=== PATIENT | female | born 1995 | race American Indian/Alaskan Native ===

== ENCOUNTER 2016-09-15 23:28 | Emergency (ER) | payer SELFPAY ==
[2016-09-15 23:38] VITALS: BMI 20.7
[2016-09-15 23:48] VITALS: TEMP 98; O2SAT 100
--- NOTE | 2016-09-16 00:11 | ED PDOC ---
Arrival/HPI - General Chief Complaint: Chest Pain Time Seen by Provider: 09/15/16 23:45 Historian: Patient, Parent - History of Present Illness Narrative History of Present Illness (Text): 09/16/16 00:10 Karla Edmondson is a 21 year old female who presents to the Emergency department complaining of chest pain. Patient states she has been experiencing chest tightness with associated shortness of breath, left arm tingling sensation and nausea. Mother notes patient had similar symptoms yesterday and was taken to an ER in [place] s/p a syncopal episode. Mother states patient had a full workup which was negative, told her symptoms were due to anxiety, and discharged home. Patient denies any fever, chills, nausea, vomiting, diarrhea, urinary symptoms, back pain, neck pain, headache, dizziness, or any other complaints. Time/Duration: Other (yesterday) Symptom Onset: Gradual Symptom Course: Unchanged Activities at Onset: Rest, Light Context: Home Past Medical History - Provider Review Nursing Documentation Reviewed: Yes - Neurological Hx Dizziness: Yes - Psychiatric Hx Substance Use: No Family/Social History - Physician Review Nursing Documentation Reviewed: Yes Family/Social History: No Known Family HX Smoking Status: Never Smoked Hx Alcohol Use: No Hx Substance Use: No Allergies/Home Meds Allergies/Adverse Reactions: Allergies No Known Allergies Allergy (Verified 09/15/16 23:38) Review of Systems - Physician Review All systems were reviewed & negative as marked: Yes - Review of Systems Constitutional: Normal. absent: Fevers Eyes: Normal ENT: Normal Respiratory: SOB Cardiovascular: Chest Pain Gastrointestinal: Nausea. absent: Abdominal Pain, Diarrhea, Vomiting Genitourinary Female: Normal. absent: Dysuria, Frequency, Hematuria, Urine Output Changes Musculoskeletal: Normal. absent: Back Pain, Neck Pain Skin: Normal. absent: Rash Neurological: Normal. absent: Headache, Dizziness Endocrine: Normal Hemo/Lymphatic: Normal Psychiatric: Normal Physical Exam Vital Signs Reviewed: Yes Vital Signs Temp Pulse Resp BP Pulse Ox 09/16/16 03:21 74 15 98/54 L 100 09/16/16 01:49 74 18 101/61 100 09/15/16 23:41 98.0 F 95 H 20 127/75 100 Temperature: Afebrile Blood Pressure: Normal Pulse: Regular Respiratory Rate: Normal Appearance: Positive for: Well-Appearing, Non-Toxic, Comfortable Pain Distress: None Mental Status: Positive for: Alert and Oriented X 3, other (Anxious) - Systems Exam Head: Present: Atraumatic, Normocephalic Pupils: Present: PERRL Extroacular Muscles: Present: EOMI Conjunctiva: Present: Normal Mouth: Present: Moist Mucous Membranes Neck: Present: Normal Range of Motion Respiratory/Chest: Present: Clear to Auscultation, Good Air Exchange. No: Respiratory Distress, Accessory Muscle Use Cardiovascular: Present: Regular Rate and Rhythm, Normal S1, S2. No: Murmurs Abdomen: Present: Normal Bowel Sounds. No: Tenderness, Distention, Peritoneal Signs Back: Present: Normal Inspection Upper Extremity: Present: Normal Inspection. No: Cyanosis, Edema Lower Extremity: Present: Normal Inspection. No: Edema Neurological: Present: GCS=15, CN II-XII Intact, Speech Normal Skin: Present: Warm, Dry, Normal Color. No: Rashes Psychiatric: Present: Alert, Oriented x 3, Normal Insight, Normal Concentration , Anxious Medical Decision Making ED Course and Treatment: 09/16/16 00:10 Impression: 21 year old female complaining of chest tightness, shortness of breath, left arm tingling, and nausea. Plan: -- EKG -- Chest X-ray -- Labs, cardiac enzymes, D-dimer -- Urine drug screen -- Duoneb -- Reassess and disposition Progress Notes: reviewed EKG, NSR at [address]-segment elevations or depressions, no T-wave inversions, normal intervals. 09/16/16 03:55 Reviewed labs, no acute abnormalities. Reviewed radiology, Chest X-ray shows no active disease. 09/16/16 04:35 On re-evaluation, the patient feels better and is in no acute distress. I have discussed the results and plan with the patient, who expresses understanding. Patient in agreement with plan to discharged home. Patient is stable for discharge. Patient was instructed to follow up with physician/clinic in 1-2 days or return if symptoms worsen or new concerning symptoms arise. - Lab Interpretations Lab Results: 09/16/16 00:05 09/16/16 00:05 Lab Results 09/16/16 01:10: Urine Opiates Screen Negative, Urine Methadone Screen Negative, Ur Barbiturates Screen Negative, Ur Phencyclidine Scrn Negative, Ur Amphetamines Screen Negative, U Benzodiazepines Scrn Negative, U Oth Cocaine Metabols Negative, U Cannabinoids Screen Negative 09/16/16 00:05: WBC 6.0, RBC 4.91, Hgb 13.4, Hct 40.0, MCV 81.5, MCH 27.3, MCHC 33.5, RDW 12.9, Plt Count 240, MPV 10.2, D-Dimer, Quantitative 0.19, Sodium 140 , Potassium 4.2, Chloride 101, Carbon Dioxide 25, Anion Gap 18, BUN 12, Creatinine 0.8, Est GFR ( Amer) > 60, Est GFR (Non-Af Amer) > 60, Random Glucose 72, Calcium 9.8, Total Bilirubin 1.2, AST 27, ALT 24, Alkaline Phosphatase 52, Lactate Dehydrogenase 404, Total Creatine Kinase 68, Troponin I < 0.01, Total Protein 8.3, Albumin 4.5, Globulin 3.9, Albumin/Globulin Ratio 1.2 I have reviewed the lab results: Yes - RAD Interpretation Radiology Orders: 09/16/16 00:24 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 I have reviewed the chart and agree that the record accurately reflects my personal performance of the history, physical exam, medical decision making, and the department course for this patient. I have also personally directed, reviewed, and agree with the discharge instructions and disposition. Disposition/Present on Arrival - Present on Arrival Any Indicators Present on Arrival: No History of DVT/PE: No History of Uncontrolled Diabetes: No Urinary Catheter: No History of Decub. Ulcer: No History Surgical Site Infection Following: None - Disposition Have Diagnosis and Disposition been Completed?: Yes Diagnosis: Bronchospasm, Anxiety Disposition: HOME/ ROUTINE Disposition Time: 04:35 Patient Plan: Discharge Condition: GOOD Discharge Instructions (ExitCare): Bronchospasm (ED), Anxiety (ED) Additional Instructions: Use medication as prescribed/follow up with your doctor this week as scheduled Prescriptions: Albuterol HFA [Ventolin HFA 90 mcg/actuation (8 g)] 2 puff IH [id number] PRN #1 puff PRN Reason: Wheezing
[2016-09-16] MEDS ORDERED: Albuterol-Ipratrop 3 mg / 0.5 (3 ml) UD IH STA (00:25)
[2016-09-16 00:54] LABS: ALB/GLOB RATIO 1.2 (1.1-1.8); ALKALINE PHOSPHATASE 52 U/L (38-133); ALT/SGPT 24 U/L (7-56); AST/SGOT 27 U/L (15-39); BILIRUBIN,TOTAL 1.2 mg/dL (0.2-1.3); BLOOD UREA NITROGEN 12 mg/dL (7-21); CALCIUM 9.8 mg/dL (8.4-10.5); CARBON DIOXIDE 25 mmol/L (21-33); CHLORIDE 101 mmol/L (98-107); GFR AFRICAN-AMERICAN > 60; GLUCOSE,RANDOM 72 mg/dL (70-110); POTASSIUM 4.2 mmol/L (3.6-5.0); SODIUM 140 mmol/L (132-148); TOTAL PROTEIN 8.3 g/dL (5.8-8.3)
[2016-09-16 01:05] LABS: TROPONIN I < 0.01 ng/mL
[2016-09-16 01:42] LABS: MEAN CELL VOLUME 81.5 fL (80.0-105.0); MEAN CORPUSCULAR HEMOGLOBIN 27.3 pg (25.0-35.0); MEAN CORPUSCULAR HGB CONC 33.5 g/dl (31.0-37.0); MEAN PLATELET VOLUME 10.2 fl (7.0-11.0); RED CELL DISTRIBUTION WIDTH 12.9 % (11.5-14.5)
[2016-09-16 01:50] VITALS: PULSE 74
[2016-09-16 03:24] VITALS: BP 98/54; RESP 15
--- NOTE | 2016-09-16 07:16 | RAD ---
HISTORY: sob COMPARISON: No prior. FINDINGS: LUNGS: No active pulmonary disease. PLEURA: No significant pleural effusion identified, no pneumothorax apparent. CARDIOVASCULAR: Normal. OSSEOUS STRUCTURES: Mild dextroscoliosis VISUALIZED UPPER ABDOMEN: Normal. OTHER FINDINGS: None. IMPRESSION: No active disease.
--- NOTE | 2016-09-16 16:49 | CARD ---
APPROVED REPORT EKG Measurement Heart [id number] ID [id number] <Conclusion> Normal sinus rhythm Normal ECG
== END 2016-09-16 04:46 | disposition home or self-care (01) ==
LOC: ED 23:28
DX: F41.9 Anxiety disorder, unspecified (principal); J98.01 Acute bronchospasm
CPT/HCPCS: 71010; 80053; 82550; 83615; 84484; 85027; 85378; 93005; 99284; G0480

== ENCOUNTER 2017-04-13 08:38 | Emergency (ER) | payer OTHER ==
[2017-04-13 08:45] VITALS: BMI 21.0
[2017-04-13] MEDS ORDERED: Sodium Chloride 0.9% 1,000 ML IV STA (09:24)
[2017-04-13 09:25] VITALS: TEMP 97.8
--- NOTE | 2017-04-13 09:29 | ED PDOC ---
Arrival/HPI - General Chief Complaint: Back Pain Time Seen by Provider: 04/13/17 09:16 Historian: Patient - History of Present Illness Narrative History of Present Illness (Text): 04/13/17 09:26 22 yo female , LNMP 10/09/16, 26 wks , (+) care, uncomplicated up to-today, present to ED for evaluation of chill, gradual worsening of bodyaches " mostly my back", sore throat for past 2 days. Otherwise, pt denies high fever, chills, headache, dizziness, neck pain, drooling, dysphagia, dyspnea, cough, CP, SOB, wheezing, abd. pain, V/D, UTI sx, vaginal irritation/bleeding or any other active complaints. At the time of evaluation, appears comfortable, not in any apparent distress. Past Medical History - Provider Review Nursing Documentation Reviewed: Yes - Travel History Have you recently traveled outside [place] w/in the past 3 mons?: No If Yes, travel location?: No - Past History Past History: No Previous - Infectious Disease Hx of Infectious Diseases: None - Tetanus Immunization Tetanus Immunization: Up to Date - Neurological Hx Dizziness: Yes - Psychiatric Hx Substance Use: No Family/Social History - Physician Review Nursing Documentation Reviewed: Yes Family/Social History: No Known Family HX Smoking Status: Never Smoked Hx Alcohol Use: No Hx Substance Use: No Allergies/Home Meds Allergies/Adverse Reactions: Allergies No Known Allergies Allergy (Verified 09/15/16 23:38) Review of Systems - Review of Systems Constitutional: Fatigue. absent: Fevers, Night Sweats Eyes: Normal. absent: Vision Changes ENT: Sore Throat. absent: Tinnitus Respiratory: Normal. absent: SOB, Cough, Sputum Cardiovascular: Normal. absent: Chest Pain Gastrointestinal: Normal. absent: Abdominal Pain, Diarrhea, Vomiting Genitourinary Female: Normal. absent: Dysuria, Frequency, Hematuria, Vaginal Bleeding Musculoskeletal: Normal Skin: Normal Neurological: Normal Endocrine: Normal Hemo/Lymphatic: Normal Psychiatric: Normal Physical Exam Vital Signs Reviewed: Yes Vital Signs Temp Pulse Resp BP Pulse Ox 04/13/17 11:14 17 L 18 118/73 99 04/13/17 09:03 97.8 F 88 17 103/66 98 Temperature: Afebrile Blood Pressure: Normal Pulse: Regular Respiratory Rate: Normal Appearance: Positive for: Well-Appearing, Non-Toxic, Comfortable Pain Distress: Mild Mental Status: Positive for: Alert and Oriented X 3 - Systems Exam Head: Present: Atraumatic, Normocephalic Conjunctiva: Present: Normal Ears: Present: NORMAL TM Mouth: Present: Moist Mucous Membranes. No: Drooling, Normal Lips Pharnyx: Present: ERYTHEMA (mild B/L). No: EXUDATE, TONSILS ENLARGED Nose (Internal): Present: Normal Inspection Neck: Present: Trachea Midline. No: JVD, Lymphadenopathy Respiratory/Chest: Present: Clear to Auscultation, Good Air Exchange. No: Respiratory Distress, Accessory Muscle Use Cardiovascular: Present: Regular Rate and Rhythm, Normal S1, S2. No: Murmurs Abdomen: Present: Normal Bowel Sounds. No: Tenderness, Distention, Peritoneal Signs, Rebound, Guarding Back: Present: Normal Inspection. No: CVA Tenderness Upper Extremity: Present: Normal Inspection Lower Extremity: Present: Normal Inspection, NORMAL PULSES, Normal ROM. No: Edema, CALF TENDERNESS, Swelling Neurological: Present: GCS=15, Speech Normal Skin: Present: Warm, Dry, Normal Color. No: Rashes Psychiatric: Present: Alert, Oriented x 3, Normal Insight, Normal Concentration Medical Decision Making ED Course and Treatment: 04/13/17 10:37 On re-eval, ptis afebrile, hemodynamicaly stable. Non-toxic. Pt reports, moderate improvement in sx. PulseOx 99% RA ENT: no acute findings, uvula midline, no edema. Neck: Supple, (-) meningeal sign. Lungs: CTA B/L, BS equal B/L. CVS: (+)S1S2, reg. Abd: benign, (-) guarding, (-) rebound, (-) localized tenderness. back: (-) CVA tenderness. NO peripheral edema noted. Blood work review and appears normal, no acute leukocytosis, electrolytes- no acute abnormalities. UA- normal study. Influenza, RST (-) Pt has clinical findings c/w viral illness Pt advised on course of ds. ref. to f/u with PMD, OB in 2-3 days for re-evaluation. Return to ED if any worsening or new changes. Pt understand, agrees with discharges. - Lab Interpretations Lab Results: 04/13/17 09:40 04/13/17 09:40 Lab Results 04/13/17 09:40: Beta HCG, Quant 42675.00 H 04/13/17 09:40: Sodium 138, Potassium 3.6, Chloride 105, Carbon Dioxide 24, Anion Gap 13, BUN 6 L, Creatinine 0.7, Est GFR ( Amer) > 60, Est GFR (Non -Af Amer) > 60, Random Glucose 76, Calcium 8.8, Total Bilirubin 0.9, AST 27, ALT 38, Alkaline Phosphatase 76, Total Protein 6.4, Albumin 3.3, Globulin 3.1, Albumin/Globulin Ratio 1.1 04/13/17 09:40: WBC 7.5 D, RBC 3.93, Hgb 10.9 L, Hct 32.4 L, MCV 82.4, MCH 27.7 , MCHC 33.6, RDW 13.6, Plt Count 163, MPV 8.9, Gran % 69.3 H, Lymph % (Auto) 19.9 L, [place] % (Auto) 8.7 H, Eos % (Auto) 1.7, Baso % (Auto) 0.4, Gran # 5.18, Lymph # 1.5, [place] # 0.7 H, Eos # 0.1, Baso # 0.03 04/13/17 09:25: Influenza Typ A,B (EIA) Negative for flu a/b 04/13/17 09:25: Grp A Beta Strep Ag Negative 04/13/17 09:00: Urine Color Yellow, Urine Appearance Clear, Urine pH 7.0, Ur Specific [place] 1.010, Urine Protein Negative, Urine Glucose (UA) Negative, Urine Ketones Negative, Urine Blood Negative, Urine Nitrate Negative, Urine Bilirubin Negative, Urine Urobilinogen 0.2, Ur Leukocyte Esterase Trace H, Urine RBC 0 - 2, Urine WBC 0 - 2, Ur Epithelial Cells 1 - 3, Urine Bacteria Mod , Urine HCG, Qual Positive - Medication Orders Current Medication Orders: Discontinued Medications Acetaminophen (Tylenol 325mg Tab) 975 mg PO STAT STA Stop: 04/13/17 09:26 Last Admin: 04/13/17 09:57 Dose: 975 mg MAR Pain/Vitals Document 04/13/17 09:57 [facility] (Rec: 04/13/17 09:57 [facility] [id number]) Pain Reassessment Is This A Pain ReAssessment? No Sodium Chloride (Sodium Chloride 0.9%) 1,000 mls @ 999 mls/hr IV .Q1H1M STA Stop: 04/13/17 10:24 Last Admin: 04/13/17 09:56 Dose: 999 mls/hr eMAR Start Stop Document 04/13/17 09:56 [facility] (Rec: 04/13/17 09:57 [facility] [id number]) Intravenous Solution Start Date 04/13/17 Start Time 09:45 End Date 04/13/17 End time 10:45 Total Infusion Time 60 Ondansetron HCl (Zofran Inj) 4 mg IVP ONCE ONE Stop: 04/13/17 09:26 Last Admin: 04/13/17 11:16 Dose: IVP Administration Document 04/13/17 11:16 [facility] (Rec: 04/13/17 11:17 [facility] [id number]) Charges for Administration # of IVP Administrations 1 Disposition/Present on Arrival - Present on Arrival Any Indicators Present on Arrival: No History of DVT/PE: No History of Uncontrolled Diabetes: No Urinary Catheter: No History of Decub. Ulcer: No History Surgical Site Infection Following: None - Disposition Have Diagnosis and Disposition been Completed?: Yes Diagnosis: Viral illness Disposition: HOME/ ROUTINE Disposition Time: 11:03 Patient Plan: Discharge Condition: STABLE Discharge Instructions (ExitCare): Viral Syndrome (ED) Additional Instructions: ENCOURAGE FLUIDS TYLENOL NEED FOR PAIN FOLLOW UP WITH PMD, OB IN 2-3 DAYS FOR RE-EVALUATION. RETURN TO ED IF ANY WORSENING OR NEW CHANGES. [facility] - Follow up with primary Forms: [employer] ([place]), WORK NOTE
[2017-04-13 09:32] LABS: URINE BILIRUBIN NEGATIVE (NEGATIVE); URINE BLOOD NEGATIVE (NEGATIVE); URINE GLUCOSE (UA) NEGATIVE (NEGATIVE); URINE KETONE NEGATIVE (NEGATIVE); URINE LEUKOCYTE ESTERASE TRACE Leu/uL (NEGATIVE); URINE PROTEIN NEGATIVE mg/dL (<30 mg/dL); URINE UROBILINOGEN 0.2 E.U./dL (<1 E.U./dL)
[2017-04-13 09:42] LABS: URINE APPEARANCE CLEAR (CLEAR); URINE COLOR YELLOW (YELLOW)
[2017-04-13 09:58] LABS: URINE BACTERIA MOD (NEG); URINE RBC 0 - 2 /hpf (0-2); URINE WBC 0 - 2 /hpf (0-6)
[2017-04-13 10:02] LABS: BASO # 0.03 K/mm3 (0.0-2.0); BASO % 0.4 % (0.0-3.0); EOS # 0.1 (0.0-0.7); EOS % 1.7 % (1.5-5.0); GRAN # 5.18 (1.4-6.5); GRAN % 69.3 % (50.0-68.0); HEMATOCRIT 32.4 % (36.0-48.0); LYMPH # 1.5 (1.2-3.4); LYMPH % 19.9 % (22.0-35.0); MEAN CELL VOLUME 82.4 fl (80.0-105.0); MEAN CORPUSCULAR HEMOGLOBIN 27.7 pg (25.0-35.0); MEAN CORPUSCULAR HGB CONC 33.6 g/dl (31.0-37.0); MEAN PLATELET VOLUME 8.9 fl (7.0-11.0); MONO # 0.7 (0.1-0.6); MONO % 8.7 % (1.0-6.0); RED CELL DISTRIBUTION WIDTH 13.6 % (11.5-14.5); WHITE BLOOD COUNT 7.5 10^3/ul (4.5-11.0)
[2017-04-13 10:11] LABS: ALB/GLOB RATIO 1.1 (1.1-1.8); ALKALINE PHOSPHATASE 76 U/L (38-126); ALT/SGPT 38 U/L (7-56); AST/SGOT 27 U/L (14-36); BILIRUBIN,TOTAL 0.9 mg/dL (0.2-1.3); BLOOD UREA NITROGEN 6 mg/dL (7-21); CALCIUM 8.8 mg/dL (8.4-10.5); CARBON DIOXIDE 24 mmol/L (21-33); CHLORIDE 105 mmol/L (98-107); GFR AFRICAN-AMERICAN > 60; GLUCOSE,RANDOM 76 mg/dL (70-110); POTASSIUM 3.6 mmol/L (3.6-5.0); SODIUM 138 mmol/L (132-148); TOTAL PROTEIN 6.4 g/dL (5.8-8.3)
[2017-04-13 11:15] VITALS: BP 118/73; PULSE 17; RESP 18; O2SAT 99
== END 2017-04-13 11:33 | disposition home or self-care (01) ==
LOC: ED 08:38
DX: B34.9 Viral infection, unspecified (principal)
CPT/HCPCS: 80053; 81001; 84702; 84703; 85025; 87070; 87086; 87430; 87804; 96360; 99283; J7040